=== PATIENT | male | born 1975 | race Hispanic/Latino ===

== ENCOUNTER 2019-11-30 22:55 | Inpatient (IN) | payer SELFPAY ==
[2019-11-30 23:45] LABS: Absolute Lymphocytes (CBC) 3.4 K/uL (0.7-4.9); Hematocrit 40.4 % (39.6-49.0); Lymphocytes % 49.1 % (15.3-44.8); MPV 12.3 fL (7.6-11.3); RBC Red Blood Cell Count 3.96 M/uL (4.33-5.43)
[2019-11-30 23:46] LABS: Protime INR 1.43
[2019-12-01 00:03] LABS: ALT/SGPT 54 U/L (12-78); AST/SGOT 104 U/L (15-37); Albumin 2.8 g/dL (3.4-5.0); Alkaline Phosphatase 190 U/L (45-117); BUN Blood Urea Nitrogen 10 mg/dL (7-18); Bicarbonate 25 mmol/L (21-32); Bilirubin Direct 0.9 mg/dL (0-0.2); Bilirubin Total 1.5 mg/dL (0.2-1.0); Glucose Level 120 mg/dL (74-106); Magnesium 1.8 mg/dL (1.8-2.4); NT PRO-BNP 41 pg/mL (<125); Potassium 3.4 mmol/L (3.5-5.1); Protein, Total 8.4 g/dL (6.4-8.2); Sodium Level 144 mmol/L (136-145); Troponin (Emerg Dept Use Only) 0.06 ng/mL (0.0-0.045)
[2019-12-01 00:34] LABS: Blood Morphology Comment NOTED (NOT SEEN); Platelet Estimate DECR; Target Cells 3+
[2019-12-01 00:52] LABS: Urine Blood NEGATIVE (NEG); Urine Glucose NEGATIVE (NEG); Urine Protein NEGATIVE (NEG); Urine pH 6.5 (5.0-7.0)
[2019-12-01 01:01] LABS: Barbiturates NEGATIVE (NEGATIVE); Benzodiazepines NEGATIVE (NEGATIVE); Cocaine NEGATIVE (NEGATIVE); METHAMPHETAM NEGATIVE (NEGATIVE); Methadone NEGATIVE (NEGATIVE); Opiates NEGATIVE (NEGATIVE); Phencyclidine NEGATIVE (NEGATIVE); THC Cannibis NEGATIVE (NEGATIVE)
--- NOTE | 2019-12-01 02:07 | EDPHYS ---
Physician Documentation [facility] Name: Jad Saeed Age: 44 yrs Sex: Male : 1975 Arrival Date: 11/30/2019 Time: 22:56 Bed 8 Private MD: ED Physician Hudson Pelayo HPI: 11/29 23:24 This 44 yrs old Male presents to ER via Ambulatory with complaints of Chest tw4 Pain, R Am Pain. 23:24 The patient or guardian reports chest pain that is located primarily in the anterior tw4 chest wall. Onset: today. The pain does not radiate. Associated signs and symptoms: The patient has no apparent associated signs or symptoms. The chest pain is described as a heaviness. Duration: The patient or guardian reports a single episode. Modifying factors: The symptoms are alleviated by nothing. the symptoms are aggravated by nothing. The patient has not experienced similar symptoms in the past. Historical: - Allergies: 23:20 No Known Allergies; rv - Home Meds: 23:20 None [Active]; rv - PMHx: 23:20 Hypertension; rv - PSHx: 23:20 None; rv - Immunization history:: Adult Immunizations up to date, Flu vaccine is up to date. - Social history:: Smoking status: Patient denies any tobacco usage or history of. ROS: 23:24 Constitutional: Negative for fever, chills, and weight loss, Eyes: Negative for injury, tw4 pain, redness, and discharge, Respiratory: Negative for shortness of breath, cough, wheezing, and pleuritic chest pain, Abdomen/GI: Negative for abdominal pain, nausea, vomiting, diarrhea, and constipation, Back: Negative for injury and pain, MS/Extremity: Negative for injury and deformity, Skin: Negative for injury, rash, and discoloration, Neuro: Negative for headache, weakness, numbness, tingling, and seizure. 23:24 Cardiovascular: Positive for chest pain. Exam: 23:24 Constitutional: This is a well developed, well nourished patient who is awake, alert, tw4 and in no acute distress. Head/Face: Normocephalic, atraumatic. Chest/axilla: Normal chest wall appearance and motion. Nontender with no deformity. No lesions are appreciated. Cardiovascular: Regular rate and rhythm with a normal S1 and S2. No gallops, murmurs, or rubs. Normal PMI, no JVD. No pulse deficits. Respiratory: Lungs have equal breath sounds bilaterally, clear to auscultation and percussion. No rales, rhonchi or wheezes noted. No increased work of breathing, no retractions or nasal flaring. Abdomen/GI: Soft, non-tender, with normal bowel sounds. No distension or tympany. No guarding or rebound. No evidence of tenderness throughout. Back: No spinal tenderness. No costovertebral tenderness. Full range of motion. MS/ Extremity: Pulses equal, no cyanosis. Neurovascular intact. Full, normal range of motion. Neuro: Awake and alert, GCS 15, oriented to person, place, time, and situation. Cranial nerves II-XII grossly intact. Motor strength 5/5 in all extremities. Sensory grossly intact. Cerebellar exam normal. Normal gait. Vital Signs: 23:09 BP 143 / 100; Pulse 92; Resp 18; Temp 97.8; Pulse Ox 96% on R/A; Weight 99.79 kg; rv Height 5 ft. 8 in. (172.72 cm); Pain 8/10; 11/30 00:12 BP 130 / 86; Pulse 101; Resp 18; Pulse Ox 96% on R/A; mg2 02:00 BP 123 / 88; Pulse 78; Resp 18; Pulse Ox 95% on R/A; mg2 03:00 BP 130 / 95; Pulse 87; Resp 18; Pulse Ox 95% on R/A; mg2 04:37 BP 121 / 87; Pulse 87; Resp 18; Temp 97.8; Pulse Ox 97% on R/A; mg2 11/29 23:09 Body Mass Index 33.45 (99.79 kg, 172.72 cm) rv MDM: 11/29 23:10 Patient medically screened. tw4 11/30 04:30 Differential diagnosis: abnormal EKG, anxiety, cholecystitis, Cholelithiasis tw4 myocarditis, pulmonary embolus, unstable angina. HEART Score: History: Slightly Suspicious (0), ECG: Non specific repolarization disturbance / LBTB / PM (1), Age: < or = 45 years (0), Risk Factors: 1 or 2 risk factors (1), Troponin: > 1 and < 3 x normal limit (1), Total Score = 3. The patient was given aspirin in the Emergency Department. Data reviewed: vital signs, nurses notes. 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 Test interpretation: by ED physician or midlevel provider: ECG, plain radiologic studies. Counseling: I had a detailed discussion with the patient and/or guardian regarding: the historical points, exam findings, and any diagnostic results supporting the discharge/admit diagnosis. Physician consultation: Dilan Maki regarding admission, to the telemetry unit. patient's condition, and will see patient in ED. 11/29 23:08 Order name: Basic Metabolic Panel; Complete Time: 01:56 mg2 11/30 01:56 Interpretation: Normal except: K 3.4; GLUC 120; CL 108. tw4 11/29 23:08 Order name: CBC with Diff; Complete Time: 01:56 mg2 11/30 01:57 Interpretation: Normal except: RBC 3.96; MCV 101.9; PLT 64. tw4 11/29 23:08 Order name: LFT's; Complete Time: 01:56 mg2 11/30 01:57 Interpretation: Normal except: AST 104; ALK 190; BILIT 1.5; BILID 0.9; TP 8.4; ALB 2.8; tw4 GLOB 5.6; A/G 0.5. 11/29 23:08 Order name: Magnesium; Complete Time: 01:56 mg2 11/30 01:57 Interpretation: Normal except: MG 1.8. tw4 11/29 23:08 Order name: NT PRO-BNP; Complete Time: 01:56 mg2 11/30 01:57 Interpretation: Normal except: NT PRO-BNP 41. tw4 11/29 23:08 Order name: PT-INR; Complete Time: 01:56 mg2 11/30 01:57 Interpretation: Normal except: PT 16.7. tw4 11/29 23:08 Order name: Troponin (emerg Dept Use Only); Complete Time: 00:15 mg2 11/29 23:08 Order name: XRAY Chest (1 view) mg2 11/29 23:49 Order name: Manual Differential; Complete Time: 01:56 EDMS 11/30 01:57 Interpretation: Normal except: BANDS [F] 2; LYM 46. tw4 11/29 23:49 Order name: Slides for Pathologist Review EDMS 11/30 00:15 Order name: Urine Drug Screen; Complete Time: 01:56 tw4 11/30 01:57 Interpretation: Within normal limits. tw4 11/30 00:16 Order name: Alcohol Level; Complete Time: 01:56 tw4 11/30 01:57 Interpretation: Normal except: ETOH 335. 4 11/30 00:43 Order name: Urine Dipstick--Ancillary (enter results); Complete Time: 01:56 mt 11/29 23:08 Order name: EKG; Complete Time: 23:09 mg2 11/29 23:08 Order name: Cardiac monitoring; Complete Time: 23:30 mg2 11/29 23:08 Order name: EKG - Nurse/Tech; Complete Time: 23:30 mg2 11/29 23:08 Order name: IV Saline Lock; Complete Time: 23:30 mg2 11/29 23:08 Order name: Labs collected and sent; Complete Time: 23:30 mg2 11/29 23:08 Order name: O2 Per Protocol; Complete Time: 23:30 mg2 11/29 23:08 Order name: O2 Sat Monitoring; Complete Time: 23:30 mg2 EC/03 23:28 Rate is 90 beats/min. Rhythm is regular. QRS [place] is Normal. MT interval is normal. QRS tw4 interval is normal. QT interval is normal. No Q waves. T waves are Normal. No ST changes noted. Clinical impression: NSR w/ Non-specific ST/T Changes. Interpreted by me. Reviewed by me. Administered Medications: 11/30 04:45 Drug: Lovenox 1 mg/kg Route: Sub-Q; Site: right lower abdomen; mg2 04:48 Follow up: Response: No adverse reaction mg2 Disposition: 12/01/19 02:05 Hospitalization ordered by Dilan Maki for Inpatient Admission. Preliminary diagnosis are Other chest pain, Non-ST elevation (NSTEMI) myocardial infarction, Alcohol abuse with intoxication, uncomplicated. - Bed requested for Intensive Care Unit. - Status is Inpatient Admission. mg2 - Condition is Stable. - Problem is new. - Symptoms have improved. Signatures: Dispatcher [employer] Angelica Hastings RN RN cg Wadley, Terrence, MD MD tw4 Dmitri Hermosillo RN RN mg2 Darrel Noel RN RN rv Corrections: (The following items were deleted from the chart) 03:08 02:05 Hospitalization Ordered by Dilan Maki for Observation. Preliminary diagnosis tw4 is Other chest pain. Bed requested for Telemetry/MedSurg (observation). Status is Observation. Condition is Stable. Problem is new. Symptoms have improved. tw4 04:09 03:08 12/01/2019 02:05 Hospitalization Ordered by Dilan Maki for Inpatient cg Admission. Preliminary diagnosis is Other chest pain; Non-ST elevation (NSTEMI) myocardial infarction; Alcohol abuse with intoxication, uncomplicated. Bed requested for Telemetry/MedSurg (Inpatient). Status is Inpatient Admission. Condition is Stable. Problem is new. Symptoms have improved. tw4 04:55 04:09 12/01/2019 02:05 Hospitalization Ordered by Dilan Maki for Inpatient mg2 Admission. Preliminary diagnosis is Other chest pain; Non-ST elevation (NSTEMI) myocardial infarction; Alcohol abuse with intoxication, uncomplicated. Bed requested for Intensive Care Unit. Status is Inpatient Admission. Condition is Stable. Problem is new. Symptoms have improved. cg
--- NOTE | 2019-12-01 02:07 | ER ---
Nurse's Notes [facility] Name: Jad Saeed Age: 44 yrs Sex: Male : 1975 Arrival Date: 11/30/2019 Time: 22:56 Bed 8 Private MD: Diagnosis: Other chest pain;Non-ST elevation (NSTEMI) myocardial infarction;Alcohol abuse with intoxication, uncomplicated Presentation: 11/29 23:09 Chief complaint: daughter in law: he started having chest pain two hours ago. right rv chest wall and moves to the right arm. also complaining of SOB. Coronavirus screen: Proceed with normal triage. Ebola Screen: No symptoms or risks identified at this time. Initial Sepsis Screen: Does the patient meet any 2 criteria? No. Patient's initial sepsis screen is negative. Does the patient have a suspected source of infection? No. Patient's initial sepsis screen is negative. Risk Assessment: Do you want to hurt yourself or someone else? Patient reports no desire to harm self or others. Onset of symptoms was November 30, 2019 at 21:00. 23:09 Method Of Arrival: Ambulatory 23:09 Acuity: VIVIENNE 3 rv Triage Assessment: 23:20 General: Appears comfortable, Behavior is calm, cooperative. Pain: Complains of pain in rv chest. EENT: No signs and/or symptoms were reported regarding the EENT system. Neuro: Level of Consciousness is awake, alert, obeys commands, Oriented to person, place, time, situation. Cardiovascular: Reports chest pain, Patient's skin is warm and dry. Rhythm is regular Chest pain is described as Pain is 8 out of 10 on a pain scale. quality is pressure, is located in right chest wall radiates to right arm(s) began 2 hours prior to arrival. Respiratory: Reports shortness of breath at rest Airway is patent Respiratory effort is even, unlabored, Breath sounds are clear bilaterally. Derm: Skin is intact. Historical: - Allergies: 23:20 No Known Allergies; rv - Home Meds: 23:20 None [Active]; rv - PMHx: 23:20 Hypertension; rv - PSHx: 23:20 None; rv - Immunization history:: Adult Immunizations up to date, Flu vaccine is up to date. - Social history:: Smoking status: Patient denies any tobacco usage or history of. Screenin:21 Abuse screen: Denies threats or abuse. Denies injuries from another. Nutritional rv screening: No deficits noted. Tuberculosis screening: No symptoms or risk factors identified. Fall Risk None identified. Assessment: 23:21 Pain: Pain radiates to right arm Pain began 2 hours ago. rv 11/30 00:12 Reassessment: Patient appears in no apparent distress at this time. Patient and/or mg2 family updated on plan of care and expected duration. Pain level reassessed. Patient is alert, oriented x 3, equal unlabored respirations, skin warm/dry/pink. Vital Signs: 11/29 23:09 BP 143 / 100; Pulse 92; Resp 18; Temp 97.8; Pulse Ox 96% on R/A; Weight 99.79 kg; rv Height 5 ft. 8 in. (172.72 cm); Pain 8/10; 11/30 00:12 BP 130 / 86; Pulse 101; Resp 18; Pulse Ox 96% on R/A; mg2 02:00 BP 123 / 88; Pulse 78; Resp 18; Pulse Ox 95% on R/A; mg2 03:00 BP 130 / 95; Pulse 87; Resp 18; Pulse Ox 95% on R/A; mg2 04:37 BP 121 / 87; Pulse 87; Resp 18; Temp 97.8; Pulse Ox 97% on R/A; mg2 11/29 23:09 Body Mass Index 33.45 (99.79 kg, 172.72 cm) rv ED Course: 11/29 22:56 Patient arrived in ED. ds1 23:09 Darrel Noel, BLAIR is Primary Nurse. rv 23:09 Hudson Pelayo MD is Attending Physician. tw4 23:19 Triage completed. rv 23:20 Arm band placed on Patient placed in the treatment room, on a stretcher, Patient rv notified of wait time. 23:21 Placed in gown. Bed in low position. Call light in reach. Adult w/ patient. Cardiac rv monitor on. Pulse ox on. NIBP on. 23:21 Patient maintains SpO2 saturation greater than 95% on room air. rv 23:30 Inserted saline lock: 18 gauge in right forearm, using aseptic technique. Blood rv collected. 23:36 XRAY Chest (1 view) In Process Unspecified. EDMS 11/30 02:01 Dilan Maki is Hospitalizing Provider. tw4 04:37 No provider procedures requiring assistance completed. Patient admitted, IV remains in mg2 place. Administered Medications: 04:45 Drug: Lovenox 1 mg/kg Route: Sub-Q; Site: right lower abdomen; mg2 04:48 Follow up: Response: No adverse reaction mg2 Outcome: 02:05 Decision to Hospitalize by Provider. tw4 04:38 Admitted to ICU accompanied by nurse, accompanied by tech, via stretcher, room 5, on mg2 monitor, with chart, Report called to BLAIR White 04:38 Condition: stable 04:38 Instructed on the need for admit, Demonstrated understanding of instructions. 04:55 Patient left the ED. mg2 Signatures: Dispatcher [employer] EDMS Joanne Abbott ds1 Hudson Pelayo MD MD tw4 Dmitri Hermosillo, RN RN mg2 Darrel Noel RN RN rv
--- NOTE | 2019-12-01 03:34 | P.HP ---
Certification for Inpatient Patient admitted to: Observation With expected LOS: <2 Midnights Practitioner: I am a practitioner with admitting privileges, knowledge of patient current condition, hospital course, and medical plan of care. Services: Services provided to patient in accordance with Admission requirements found in Title 42 Section 412.3 of the Code of Federal Regulations Patient History Date of Service: 12/01/19 Reason for admission: Chest pain History of Present Illness: 44-year-old Amharic-speaking gentleman presented emergency department with a complaint of chest pain of onset last night. Chest pain rated at 6 to 8/10, nonradiating, located on the anterior chest, no relieving or aggravating factors. His cardiac risk factors include hypertension. His initial troponin is mildly elevated in the ED. EKG demonstrated nonspecific ST-T changes an interventricular conduction delay. His alcohol level was greater than 300. Patient denies chronic alcoholism. He also denies illicit drug use. He does not take any medication. Chest x-ray shows no acute infiltrate. There is a concern patient may go into alcohol withdrawal. Patient is placed under observation for further management. - Past Medical/Surgical History -: Hypertension - Family History Family History: Reviewed- Non-Contributory - Social History Smoking Status: Never smoker Alcohol use: Yes CD- Drugs: No Place of Residence: Home Review of Systems Other: Patient denied cough, shortness of breath, abdominal pain, palpitation. Except as documented, all other systems reviewed and negative. Physical Examination - Physical Exam General: Alert, In no apparent distress, Oriented x3 HEENT: PERRLA, Mucous membr. moist/pink, Sclerae nonicteric Neck: Supple, JVD not distended Respiratory: Clear to auscultation bilaterally, Normal air movement Cardiovascular: Regular rate/rhythm, Normal S1 S2, No murmurs, Edema (Trace bilateral ankle edema.) Capillary refill: <2 Seconds Gastrointestinal: Normal bowel sounds, Soft and benign, Non-distended, No tenderness Musculoskeletal: No swelling, No erythema Integumentary: No rashes Neurological: Normal speech, Normal strength at 5/5 x4 extr, Cranial nerves 3-12 intact - Studies Laboratory Data (last 24 hrs) 11/30/19 23:30: PT 16.7 H, INR 1.43 11/30/19 23:30: WBC 7.0, Hgb 13.7, Hct 40.4, Plt Count 64 L 11/30/19 23:30: Sodium 144, Potassium 3.4 L, BUN 10, Creatinine 0.78, Glucose 120 H, Magnesium 1.8, Total Bilirubin 1.5 H, AST 104 H, ALT 54, Alkaline Phosphatase 190 H Assessment and Plan - Problems (Diagnosis) (1) Chest pain Current Visit: Yes Status: Acute (2) Elevated troponin Current Visit: Yes Status: Acute (3) Hypertension Current Visit: Yes Status: Acute (4) Alcohol intoxication Current Visit: Yes Status: Acute - Plan Place under observation. Will monitor in the ICU for impending alcohol withdrawal. Trend troponin Treat for NSTEMI with full-dose Lovenox, aspirin, Plavix, metoprolol and Lipitor. NTG p.r.n. Initiate CIWA. Ativan IV p.r.n. for alcohol withdrawal Check echocardiogram Cardiology consult - Advance Directives Does patient have a Living Will: No Does patient have a Durable POA for Healthcare: No
[2019-12-01] MEDS ORDERED: ONDANSETRON 4 MG/2 ML VIAL IV PRN (04:39)
[2019-12-01] MEDS ORDERED: NITROGLYCERIN 0.4 MG/TAB SL PRN (04:39)
[2019-12-01] MEDS ORDERED: ACETAMINOPHEN 500 MG TAB PO PRN (04:39)
[2019-12-01] MEDS ORDERED: MORPHINE 4 MG/ML SYR IV PRN (04:39)
[2019-12-01] MEDS ORDERED: ENOXAPARIN 100 MG/ML SYR SQ ONE (04:47)
[2019-12-01] MEDS ORDERED: POTASSIUM CL SA 10 MEQ TAB PO ONE ×3 (05:22→15:00)
[2019-12-01] MEDS: NA CHLORIDE 0.9% 1,000 ML IV SCH ×2 (05:38→16:32)
[2019-12-01] MEDS: METOPROLOL TAR 25 MG TAB PO SCH ×2 (05:39→17:29)
[2019-12-01 06:20] LABS: Troponin I 0.09 ng/mL (0.0-0.045)
[2019-12-01] MEDS ORDERED: FLUMAZENIL 0.1 MG/ML (5 mL VIAL) IV PRN (07:01)
[2019-12-01] MEDS ORDERED: LORazepam 2 MG/ML VIAL IV PRN (07:01)
[2019-12-01] MEDS: LORazepam 2 MG/ML VIAL IV SCH ×4 (08:00→21:24)
[2019-12-01] MEDS: FOLIC ACID 1 MG TABLET PO SCH (08:05)
[2019-12-01] MEDS: THIAMINE HCL 100 MG TABLET PO SCH (08:05)
[2019-12-01] MEDS: ASPIRIN EC 81 MG TAB PO SCH (08:05)
--- NOTE | 2019-12-01 08:33 | RAD REPORT ---
EXAM DESCRIPTION: Shen Single View11/30/2019 11:36 pm CLINICAL HISTORY: Chest pain COMPARISON: none FINDINGS: The lungs appear clear of acute infiltrate. The heart is normal size IMPRESSION: No acute abnormalities displayed
[2019-12-01] MEDS ORDERED: MAGNESIUM SULFATE 1 gm IVPB 1 GM/100 ML BAG IV ONE (08:37)
[2019-12-01] MEDS ORDERED: CLOPIDOGREL 75 MG TABLET PO SCH (09:00)
--- NOTE | 2019-12-01 10:50 | EKG ---
Test Date: 2019-11-30 Test Time: 23:25:53 Monogram And Letter Paster: ELENA MEASUREMENT RESULTS: Intervals: Rate: 90 VT: 174 QRSD: 98 QT: 382 QTc: 467 Cutler: P: 35 VT: 174 QRS: -58 T: 18 INTERPRETIVE STATEMENTS: Normal sinus rhythm Left anterior fascicular block Abnormal ECG No previous ECG available for comparison Electronically Signed On 12-01-19 10:49:01 CDT by Baljeet Hurley
--- NOTE | 2019-12-01 11:30 | ECHO ---
HEIGHT: 5 ft 8 in WEIGHT: 230 lb 11.2 oz DATE OF STUDY: 12/01/[address]: gerson mcgee 2-DIMENSIONAL: YES M.MODE: YES DOPPLER: YES COLOR FLOW: YES TDS: NO PORTABLE: YES DEFINITY: NO BUBBLE STUDY: NO DIAGNOSIS: CHEST PAIN, ELEVATED TROPONIN CARDIAC HISTORY: CATHERIZATION: NO SURGERY: NO PROSTHETIC VALVE: NO PACEMAKER: NO MEASUREMENTS (cm) DIASTOLIC (NORMALS) SYSTOLIC (NORMALS) IVSd 1.2 (0.6-1.2) LA Diam 3.2 (1.9-4.0) LVEF 62% LVIDd 3.9 (3.5-5.7) LVIDs 2.6 (2.0-3.5) %FS 33% LVPWd 1.2 (0.6-1.2) Ao Diam 2.9 (2.0-3.7) 2 DIMENSIONAL ASSESSMENT: RIGHT ATRIUM: NORMAL LEFT ATRIUM: NORMAL RIGHT VENTRICLE: NORMAL LEFT VENTRICLE: NORMAL TRICUSPID VALVE: NORMAL MITRAL VALVE: NORMAL PULMONIC VALVE: NORMAL AORTIC VALVE: NORMAL PERICARDIAL EFFUSION: NONE AORTIC ROOT: NORMAL LEFT VENTRICULAR WALL MOTION: NORMAL DOPPLER/COLOR FLOW: NORMAL COMMENTS: NORMAL 2D ECHOCARDIOGRAM WITH DOPPLER. NO WALL MOTION ABNORMALITY. NO EFFUSION. TECHNOLOGIST: Fanta ESPINO
--- NOTE | 2019-12-01 13:24 | PN ---
Date of Progress Note: 12/01/2019 Subjective: Patient seen and examined. Chart reviewed and case discussed with RN and Cardiology. Patient states he no longer has any chest pain. He does drink beer daily. No signs of alcohol withdrawal at this time. Ativan was held. Medications: List reviewed. Physical Examination: Vital Signs: Temperature 98.2, heart rate 79, blood pressure 135/95, respirations 19, O2 of 94% on room air. General: Awake, alert, oriented x3. Obese male. Not in any acute distress. CV: S1, S2. Regular rate and rhythm. Peripheral pulses present. Respiratory: Moving air well bilaterally. No wheezing or stridor. Gastrointestinal: Abdomen is soft, nontender, nondistended. Positive bowel sounds. Extremities: No clubbing, cyanosis, or edema. Neurologic: Nonfocal. Laboratory Data: Troponin 0.09. Triglycerides 250, cholesterol 170, LDL 99, HDL 21. Assessment: A 44-year-old male with: 1. Chest pain, rule out acute coronary syndrome. Cardiac enzymes are mildly elevated. We will continue with chest pain guidelines, aspirin, statin, and beta-bela. EKG showed nonspecific ST-T changes and conduction delay, may be related to his alcoholism. We will need to get an echocardiogram. Appreciate Cardiology input. 2. Acute alcohol intoxication. Patient is being monitored in the ICU for impending alcohol withdrawal. We will continue with Ativan p.r.n. Continue folate and thiamine. Patient has been counseled. 3. Essential hypertension. We will continue medications. Monitor closely. 4. Obesity, BMI 35. 5. Dyslipidemia with high triglycerides. 6. Thrombocytopenia. Likely related to chronic alcohol use resulting in liver damage Plan: Pending cardiology eval. Continue monitoring in the ICU for alcohol withdrawal. ADDENDUM: Cardiology does not feel that this is acute coronary syndrome. Will discontinue Lovenox Plavix as patient has thrombocytopenia. Likely due to liver disease from alcoholism SA/MODL Voice ID: [id number] Report ID: [id number] [facility] CENTERAlly
--- NOTE | 2019-12-01 13:54 | CON ---
Date of Consultation: 12/01/[address] Delgado on 12/01/2019. I saw the patient on 12/01/2019. Reason For Consultation: Elevated troponin. History Of Present Illness: The patient is a 44-year-old male that came in with a history of alcohol use, atypical chest pain, was found to have a barely abnormal troponin of 0.06 and 0.09. Denied PND , orthopnea, pedal edema, palpitations, or syncope. Denied any fever or chills or cough. Allergies: NONE. Review of Systems: Negative. Social History: Positive for alcohol. Home Medications: None. Physical Examination: General: He was obtunded when I saw him. Vital Signs: Stable, afebrile, sinus rhythm. HEENT: Negative. Neck: Supple. No bruit. Chest: Clear. Cardiac: Regular rhythm and rate. No murmurs, gallops, or rubs. Abdomen: Benign. Extremities: Revealed no clubbing, cyanosis, or edema. Diagnostic Data: His EKG was normal. Troponin was 0.06 and 0.09. Platelet count was 64,000. Chest x-ray was normal. His echocardiogram was perfectly normal. Impression And Plan: Elevated troponin. No clinical significance. Echocardiogram is normal. I hortensia bt we are dealing with acute coronary syndrome. He had thrombocytopenia which may be consistent with liver disease. The patient is not having any chest pain. I do not recommend any further cardiac workup on him at this point. Once he goes home, we can certainly do an outpatient stress test on him. ROSALIO/SHYLA Voice ID: [id number] Report ID: [id number]
[2019-12-01] MEDS ORDERED: ENOXAPARIN 100 MG/ML SYR SQ SCH (17:00)
[2019-12-01] MEDS ORDERED: ATORVASTATIN 10 MG TAB PO SCH (21:00)
[2019-12-02] MEDS: NA CHLORIDE 0.9% 1,000 ML IV SCH (01:36)
[2019-12-02] MEDS: LORazepam 2 MG/ML VIAL IV SCH ×2 (04:14→10:00)
[2019-12-02 05:43] LABS: Protime INR 1.39
[2019-12-02 05:45] LABS: ALT/SGPT 45 U/L (12-78); AST/SGOT 82 U/L (15-37); Albumin 2.4 g/dL (3.4-5.0); Alkaline Phosphatase 128 U/L (45-117); BUN Blood Urea Nitrogen 8 mg/dL (7-18); Bicarbonate 27 mmol/L (21-32); Bilirubin Total 2.8 mg/dL (0.2-1.0); Glucose Level 87 mg/dL (74-106); HDL Cholesterol 25 mg/dL (40-60); LDL Cholesterol, Calculated 98 (<130); Magnesium 1.7 mg/dL (1.8-2.4); Phosphorus 2.6 mg/dL (2.5-4.9); Potassium 3.6 mmol/L (3.5-5.1); Protein, Total 7.7 g/dL (6.4-8.2); Sodium Level 141 mmol/L (136-145)
[2019-12-02 05:52] LABS: Absolute Lymphocytes (CBC) 1.2 K/uL (0.7-4.9); Basophils % 1.2 % (0-1.3); Hematocrit 39.9 % (39.6-49.0); Lymphocytes % 28.5 % (15.3-44.8); MPV 11.5 fL (7.6-11.3); RBC Red Blood Cell Count 3.94 M/uL (4.33-5.43)
[2019-12-02] MEDS ORDERED: MAGNESIUM SULFATE 1 gm IVPB 1 GM/100 ML BAG IV ONE (06:01)
[2019-12-02] MEDS ORDERED: POTASSIUM CL SA 10 MEQ TAB PO ONE (06:03)
[2019-12-02] MEDS: METOPROLOL TAR 25 MG TAB PO SCH (06:25)
[2019-12-02 06:37] VITALS: BMI 33.2
[2019-12-02] MEDS: ASPIRIN EC 81 MG TAB PO SCH (08:13)
[2019-12-02] MEDS: THIAMINE HCL 100 MG TABLET PO SCH (08:13)
[2019-12-02] MEDS: FOLIC ACID 1 MG TABLET PO SCH (08:13)
[2019-12-02 08:44] VITALS: O2SAT 93
--- NOTE | 2019-12-02 09:33 | P.DS ---
Admission Date: 12/01/19 Discharge Date: 12/02/19 Primary Care Provider: none Disposition: ROUTINE DISCHARGE Discharge Condition: FAIR Reason for Admission: Chest pain Consultations: Cardiology-Dr. Hurley Procedures: ECHO: Ejection fraction 62% LEFT VENTRICULAR WALL MOTION: NORMAL DOPPLER/COLOR FLOW: NORMAL COMMENTS: NORMAL 2D ECHOCARDIOGRAM WITH DOPPLER. NO WALL MOTION ABNORMALITY. NO EFFUSION. Medical problem list: Chest pain, atypical Acute alcohol intoxication Hypertension Mixed hyperlipidemia Thrombocytopenia likely related to alcohol use with possible underlying liver dysfunction Brief History of Present Illness: 44-year-old male presented to the emergency room with atypical chest pain. Patient found to have alcohol intoxication with mildly elevated troponin. Patient admitted for further evaluation. Hospital Course: Patient presented with atypical chest pain. Mild elevation in troponin noted. Patient seen and evaluated by Cardiology. Echocardiogram unremarkable with normal ejection fraction. Cardiology felt no further intervention at this time. Cardiology recommended the patient follow up with cardiology in 2-4 weeks to follow up this hospitalization. Patient will require outpatient cardiac workup. Patient will need to establish care with a PCP in the area to further address. Patient with alcohol intoxication. Alcohol level was 335. No withdrawal symptoms noted. Patient stable at discharge. Recommend alcohol cessation education. Patient plans to quit. Patient noted with thrombocytopenia. This is likely related to his alcohol use. This has remained stable. Recommend to recheck lab-CBC in 2-4 weeks to monitor his progress. Recommend continued alcohol cessation. Patient with hypertension. At discharge blood pressure stable. At discharge he will continue with metoprolol 25 mg 1 pill twice daily. Recommend to maintain blood pressure less 150/80. Further adjustment can be done by his PCP. Patient found with hyperlipidemia. At discharge will recommend fish oil 1 g twice daily. Recommend to recheck fasting lipid panel in 2-4 weeks to monitors progress. Further adjustment in medication can be done by his PCP. Suspect underlying GERD. At discharge patient may continue with Pepcid 20 mg twice daily. If this persists patient would benefit with GI evaluation as an outpatient. Patient with elevation in liver function. This may be related to his alcohol use. Recommend to recheck CMP in 2-4 weeks to monitors progress. If still elevated patient will require hepatitis panel and GI evaluation. Vital Signs/Physical Exam: Temp Pulse Resp BP Pulse Ox 98.0 F 73 11 L 132/86 96 12/02/19 04:00 12/02/19 05:00 12/02/19 05:00 12/02/19 05:00 12/02/19 05:00 General: Alert, In no apparent distress, Oriented x3, Cooperative HEENT: Atraumatic Neck: Supple Respiratory: Clear to auscultation bilaterally, Normal air movement Cardiovascular: Normal pulses, Regular rate/rhythm Gastrointestinal: Normal bowel sounds, Soft and benign, Non-distended, No tenderness, No masses, No rebound, No guarding Integumentary: No tenderness/swelling, No erythema, No warmth, No cyanosis Neurological: Normal speech, Normal strength at 5/5 x4 extr, Normal tone, Normal affect Laboratory Data at Discharge: WBC 4.4 K/uL (4.3-10.9) D 12/02/19 04:59 Hgb 13.5 g/dL (13.6-17.9) L 12/02/19 04:59 Hct 39.9 % (39.6-49.0) 12/02/19 04:59 Plt Count 54 K/uL (152-406) L 12/02/19 04:59 PT 16.3 SECONDS (9.5-12.5) H 12/02/19 04:59 INR 1.39 12/02/19 04:59 Sodium 141 mmol/L (136-145) 12/02/19 04:59 Potassium 3.6 mmol/L (3.5-5.1) 12/02/19 04:59 BUN 8 mg/dL (7-18) 12/02/19 04:59 Creatinine 0.60 mg/dL (0.55-1.3) 12/02/19 04:59 Glucose 87 mg/dL (74-106) 12/02/19 04:59 Phosphorus 2.6 mg/dL (2.5-4.9) 12/02/19 04:59 Magnesium 1.7 mg/dL (1.8-2.4) L 12/02/19 04:59 Total Bilirubin 2.8 mg/dL (0.2-1.0) H 12/02/19 04:59 AST 82 U/L (15-37) H 12/02/19 04:59 ALT 45 U/L (12-78) 12/02/19 04:59 Alkaline Phosphatase 128 U/L (45-117) H 12/02/19 04:59 Troponin I 0.06 ng/mL (0.0-0.045) H 12/01/19 13:40 Triglycerides 266 mg/dL (<150) H 12/02/19 04:59 Cholesterol 176 mg/dL (<200) 12/02/19 04:59 HDL Cholesterol 25 mg/dL (40-60) L 12/02/19 04:59 Cholesterol/HDL Ratio 7.04 12/02/19 04:59 Home Medications: Docosahexanoic AC/Epa [Fish Oil 1,000 MG CAP] 1 cap PO BID #60 cap 12/02/19 Famotidine [Pepcid] 20 mg PO BID #60 tab 12/02/19 Metoprolol Tartrate [Lopressor*] 25 mg PO BID 6AM 6PM #60 tab 12/02/19 Thiamine HCl [Vitamin B-1*] 100 mg PO DAILY #90 tablet 12/02/19 New Medications: Docosahexanoic AC/Epa [Fish Oil 1,000 MG CAP] 1 cap PO BID #60 cap Metoprolol Tartrate [Lopressor*] 25 mg PO BID 6AM 6PM #60 tab Famotidine [Pepcid] 20 mg PO BID #60 tab Thiamine HCl [Vitamin B-1*] 100 mg PO DAILY #90 tablet Patient Discharge Instructions: 1. Recommend follow up with PCP in 1-2 weeks to follow up this hospitalization and to establish care. 2. Patient presented with atypical chest pain. Mild elevation in troponin noted. Patient seen and evaluated by Cardiology. Echocardiogram unremarkable. Cardiology felt no further intervention at this time. Cardiology recommended the patient follow up with cardiology in 2-4 weeks to follow up this hospitalization. Patient will require outpatient cardiac workup. Patient will need to establish care with a PCP in the area to further address. 3. Patient with alcohol intoxication. Alcohol level was 335. No withdrawal noted. Patient stable at discharge. Recommend alcohol cessation education. Patient plans to quit. 4. Patient noted with thrombocytopenia. This is likely related to his alcohol use. This has remained stable. Recommend to recheck lab-CBC in 2-4 weeks to monitor his progress. Recommend continued alcohol cessation. 5. Patient with hypertension. At discharge blood pressure stable. At discharge he will continue with metoprolol 25 mg 1 pill twice daily. Recommend to maintain blood pressure less 150/80. Further adjustment can be done by his PCP. 6. Patient found with hyperlipidemia. At discharge will recommend fish oil 1 g twice daily. Recommend to recheck fasting lipid panel in 2-4 weeks to monitors progress. Further adjustment in medication can be done by his PCP. 7. Suspect underlying GERD. At discharge patient may continue with Pepcid 20 mg twice daily. If this persists patient would benefit with GI evaluation as an outpatient. 8. Patient with elevation in liver function. This may be related to his alcohol use. Recommend to recheck CMP in 2-4 weeks to monitors progress. If still elevated patient will require hepatitis panel and GI evaluation. Diet: AHA Activity: Ad timmy Time spent managing pt's care (in minutes): 55
[2019-12-02 11:11] VITALS: BP 131/98
[2019-12-02 11:41] VITALS: TEMP 98.3
[2019-12-03] MEDS ORDERED: LORazepam 2 MG/ML VIAL IV SCH (08:00)
== END 2019-12-02 10:55 | disposition home or self-care (01) | DRG 313 ==
LOC: ER 22:55 → ERHOLD 12-01 03:56 → 3RD-ICU 12-01 04:38 → OBSVTOIN 12-01 07:47
PROVIDERS: ADMIT Internal Medicine; ATTEND Family Medicine
DX: R07.89 Other chest pain (principal); F10.129 Alcohol abuse with intoxication, unspecified; I10 Essential (primary) hypertension; E66.9 Obesity, unspecified; D69.6 Thrombocytopenia, unspecified; E78.2 Mixed hyperlipidemia; K76.89 Other specified diseases of liver; K21.9 Gastro-esophageal reflux disease without esophagitis; K70.9 Alcoholic liver disease, unspecified; R79.89 Other specified abnormal findings of blood chemistry; Y90.8 Blood alcohol level of 240 mg/100 ml or more; Z68.35 Body mass index [BMI] 35.0-35.9, adult; Z79.899 Other long term (current) drug therapy
CPT/HCPCS: 36415; 71045; 80048; 80053; 80061; 80076; 80307; 80320; 81003; 83735; 83880; 84100; 84132; 84443; 84484; 85025; 85610; 93005; 93306; 96372; 99285; G0378; J1650; J3475; J7030